=== PATIENT | male | born 1945 | race Caucasian/White ===

== ENCOUNTER 2016-06-22 15:57 | Inpatient (IN) | payer OTHER ==
[~2016-06-22] VITALS: Ht 162.6 cm; Wt 96.7 kg
[~2016-06-22 15:57] MED LIST: ALLOPURINOL100 MG PO; APRESOLINE25 MG PO; CALCITRIOL0.25 MCG PO; CARVEDILOL6.25 MG PO; CENTRAVITES 501 EACH PO; Cipro PO; DOXYCYCLINE HY100 M3 PO; ELIQUIS5 MG PO; FEOSOL325 MG PO; FERROCITE324 MG PO; FLOMAX0.4 MG PO; FOLIC ACID1 MG PO; FOLVITE1 MG PO; FUROSEMIDE40 MG PO; Flomax PO; LOTREL 5/201 CAPSULE PO; Lopressor PO; METOPROLOL TART50 MG PO; MYCOSTATIN15 GM TP; NOVOLOG PE100 UNITS/ SC; Norvasc PO; Rocaltrol PO; SIMVASTATIN40 MG PO; THERAGRAN1 TABLET PO; ZOCOR40 MG PO; Zocor PO
[2016-06-22 17:28] LABS: EOSINOPHIL (%) 0 % (0-5); HEMATOCRIT 27.1 % (38.0-50.0); IMMATURE GRANULOCYTE (%) 0.8 % (0.0-0.7); IMMATURE GRANULOCYTE COUNT 0.1 K/uL; INSTRUMENT ABS NEUTROPHIL CT 13.1 K/uL; LYMPHOCYTE COUNT 0.4 K/uL (1.0-2.8); MCH 32.4 PG (29.0-34.0); MCHC 32.8 G/DL (30.0-36.0); MCV 98.5 FL (86-99); MEAN PLAT.VOLUME 10.7 uM^3 (9.0-12.4); MONOCYTE (%) 5.7 % (3-12); MONOCYTE COUNT 0.8 K/uL (0-0.8); NEUTROPHIL (%) 90.9 % (45-76); NEUTROPHIL COUNT 13.1 K/uL (1.8-6.4); PLATELET COUNT 140 K/uL (156-360); RBC DIS.WIDTH-CV 17.6 % (11.8-14.6); RBC DIS.WIDTH-SD 62.4 % (39-53); RED BLOOD COUNT 2.75 M/uL (4.00-5.50); WHITE BLOOD COUNT 14.5 K/uL (4.1-10.2)
[2016-06-22 17:35] LABS: CHLORIDE 108 mEq/L (99-109); SODIUM 141 mEq/L (136-147)
[2016-06-22 17:38] LABS: GLUCOSE 104 mg/dL (70-99)
[2016-06-22 17:39] LABS: ANION GAP 14 MEQ/L (2-14); TOTAL BILIRUBIN 0.8 mg/dL (0.0-1.0)
[2016-06-22 17:41] LABS: ALKALINE PHOSPHATASE 74 IU/L (3-129); GFR ESTIMATE (CALCULATED) 20 mL/min/
[2016-06-22 17:42] LABS: UREA NITROGEN (BUN) 64 mg/dL (9-23)
[2016-06-22 17:47] LABS: TROP-I INTERPRETATION INDETERMINATE; TROPONIN-I 0.35 ng/mL (0.0-0.30)
[2016-06-22 19:36] LABS: ADD MIUA? YES; BILIRUBIN NEGATIVE; BLOOD SMALL; COLOR YELLOW ((YELLOW)); GLUCOSE (STRIP) NEGATIVE; KETONES NEGATIVE; LEUKOCYTES LARGE; NITRITE NEGATIVE; PROTEIN (STRIP) 30; UROBILINOGEN 0.2 MG/DL (0.2-1.0)
[2016-06-22 19:57] LABS: BACTERIA RARE /HPF; EPITHELIAL CELLS 3+ /HPF; MUCUS TRACE /LPF; RED BLOOD CELLS 0-5 /HPF (0-5); UCUL ADDED? NO; WHITE BLOOD CELLS 40-50 /HPF (0-5)
[2016-06-22] MEDS ORDERED: DAILY VALUE1 EACH PO (20:24)
[2016-06-22] MEDS ORDERED: LASIX40 MG PO (20:25)
[2016-06-22] MEDS ORDERED: CHILD ASPIRIN81 M1 PO (20:25)
[2016-06-22] MEDS ORDERED: APRESOLINE25 MG PO (20:26)
[2016-06-22] MEDS ORDERED: COREG6.25 M1 PO (20:27)
[2016-06-22 23:22] LABS: TROP-I INTERPRETATION INDETERMINATE; TROPONIN-I 0.37 ng/mL (0.0-0.30)
[2016-06-22 23:51] VITALS: BP 110/73
[2016-06-23 03:24] VITALS: BP 97/63
[2016-06-23 06:43] LABS: ANION GAP 10 MEQ/L (2-14); CHLORIDE 106 MEQ/L (99-109); GFR ESTIMATE (CALCULATED) 20 mL/min/; GLUCOSE 112 mg/dL (70-99); POTASSIUM 4.6 MEQ/L (3.7-5.4); SAMPLE HEMOLYSIS CHECK 0; SAMPLE ICTERIC CHECK 0; SAMPLE LIPEMIA CHECK 0; SODIUM 139 MEQ/L (136-147); UREA NITROGEN (BUN) 60 mg/dL (9-23)
[2016-06-23 06:45] LABS: TROP-I INTERPRETATION INDETERMINATE
[2016-06-23 06:55] VITALS: BP 111/68
[2016-06-23 07:05] LABS: MCH 32.3 PG (29.0-34.0); MCV 100.8 FL (86-99); MEAN PLAT.VOLUME 12.2 uM^3 (9.0-12.4); PLATELET COUNT 128 K/uL (156-360); RBC DIS.WIDTH-CV 17.4 % (11.8-14.6); RBC DIS.WIDTH-SD 61.7 % (39-53); RED BLOOD COUNT 2.48 M/uL (4.00-5.50)
[2016-06-23 11:11] VITALS: BP 106/54
[2016-06-23 15:15] VITALS: BP 86/52
[2016-06-23 19:32] VITALS: BP 92/60
[2016-06-23 23:43] VITALS: BP 101/56
[2016-06-24] VITALS (9 sets, daily range): BP systolic 97–141; BP diastolic 65–87
[2016-06-24 07:50] LABS: EOSINOPHIL (%) 2.8 % (0-5); EOSINOPHIL COUNT 0.2 K/uL (0-0.3); IMMATURE GRANULOCYTE (%) 0.4 % (0.0-0.7); INSTRUMENT ABS NEUTROPHIL CT 5.3 K/uL; LYMPHOCYTE COUNT 0.4 K/uL (1.0-2.8); MCHC 32.2 G/DL (30.0-36.0); MCV 99.3 FL (86-99); MEAN PLAT.VOLUME 12.1 uM^3 (9.0-12.4); MONOCYTE (%) 10.8 % (3-12); MONOCYTE COUNT 0.7 K/uL (0-0.8); NEUTROPHIL (%) 79.8 % (45-76); NEUTROPHIL COUNT 5.3 K/uL (1.8-6.4); NRBC (%) 0.3 /100 WBC (0-0); PLATELET COUNT 144 K/uL (156-360); RBC DIS.WIDTH-CV 17.2 % (11.8-14.6); RED BLOOD COUNT 2.72 M/uL (4.00-5.50)
[2016-06-24 07:52] LABS: WHITE BLOOD COUNT 6.7 K/uL (4.1-10.2)
[2016-06-24 09:01] LABS: FERRITIN 343 NG/ML (22-322)
[2016-06-24 09:15] LABS: INTER. NORMALIZED RATIO 1.3; PROTHROMBIN TIME 13.4 (9.2-11.2); PTT 34.8 (25-32)
[2016-06-24 10:31] LABS: ANION GAP 11 MEQ/L (2-14); CHLORIDE 103 MEQ/L (99-109); DIRECT BILIRUBIN 0.2 mg/dL (0.0-0.3); POTASSIUM 4.1 MEQ/L (3.7-5.4); SAMPLE HEMOLYSIS CHECK 0; SAMPLE ICTERIC CHECK 0; SAMPLE LIPEMIA CHECK 0; SODIUM 137 MEQ/L (136-147); TOTAL BILIRUBIN 0.4 MG/DL (0.0-1.0)
[2016-06-24 10:36] LABS: ALKALINE PHOSPHATASE 61 IU/L (3-129); GFR ESTIMATE (CALCULATED) 20 mL/min/; GLUCOSE 154 mg/dL (70-99); LACTATE DEHYDROGENASE 207 IU/L (20-246); UREA NITROGEN (BUN) 68 mg/dL (9-23)
[2016-06-24 17:19] LABS: TYPE OF FLUID PLEURAL
[2016-06-24 17:56] LABS: BODY FLUID RBC'S 3000 /MM^3 (0-100); BODY FLUID WBC'S 322 /MM^3 (0-500)
[2016-06-24 18:02] LABS: MONONUCLEAR WBC'S 92 %; POLYNUCLEAR WBC'S 8 % (0-25)
[2016-06-24 18:19] LABS: BODY FLUID LDH 74 IU/L; BODY FLUID PROTEIN < 3.0 G/DL
[2016-06-25 03:15] VITALS: BP 100/55
[2016-06-25 07:40] LABS: ANION GAP 12 MEQ/L (2-14); CHLORIDE 99 MEQ/L (99-109); GFR ESTIMATE (CALCULATED) 20 mL/min/; GLUCOSE 166 mg/dL (70-99); POTASSIUM 4.1 MEQ/L (3.7-5.4); SAMPLE HEMOLYSIS CHECK 0; SAMPLE ICTERIC CHECK 0; SAMPLE LIPEMIA CHECK 0; SODIUM 134 MEQ/L (136-147); UREA NITROGEN (BUN) 70 mg/dL (9-23)
[2016-06-25 08:31] VITALS: BP 113/67
[2016-06-25 12:00] VITALS: BP 120/62
[2016-06-25 16:00] VITALS: BP 112/71
[2016-06-25 19:30] VITALS: BP 94/58
[2016-06-25 23:04] VITALS: BP 100/59
[2016-06-26] VITALS (14 sets, daily range): BP systolic 75–128; BP diastolic 6–81
[2016-06-26 06:40] LABS: EOSINOPHIL (%) 0.3 % (0-5); HEMATOCRIT 30.1 % (38.0-50.0); IMMATURE GRANULOCYTE (%) 1.1 % (0.0-0.7); IMMATURE GRANULOCYTE COUNT 0.1 K/uL; INSTRUMENT ABS NEUTROPHIL CT 5.9 K/uL; LYMPHOCYTE COUNT 0.5 K/uL (1.0-2.8); MCH 31.9 PG (29.0-34.0); MCHC 31.6 G/DL (30.0-36.0); MEAN PLAT.VOLUME 12.5 uM^3 (9.0-12.4); MONOCYTE (%) 11.1 % (3-12); MONOCYTE COUNT 0.8 K/uL (0-0.8); NEUTROPHIL (%) 79.9 % (45-76); NEUTROPHIL COUNT 5.9 K/uL (1.8-6.4); NRBC (%) 0.8 /100 WBC (0-0); PLATELET COUNT 169 K/uL (156-360); RBC DIS.WIDTH-CV 16.7 % (11.8-14.6); RBC DIS.WIDTH-SD 61.7 % (39-53); RED BLOOD COUNT 2.98 M/uL (4.00-5.50); WHITE BLOOD COUNT 7.3 K/uL (4.1-10.2)
[2016-06-26 07:07] LABS: ALKALINE PHOSPHATASE 69 IU/L (3-129); ANION GAP 11 MEQ/L (2-14); CHLORIDE 100 MEQ/L (99-109); GFR ESTIMATE (CALCULATED) 18 mL/min/; GLUCOSE 166 mg/dL (70-99); SAMPLE HEMOLYSIS CHECK 1; SAMPLE ICTERIC CHECK 0; SAMPLE LIPEMIA CHECK 0; SODIUM 135 MEQ/L (136-147); UREA NITROGEN (BUN) 74 mg/dL (9-23)
[2016-06-26 07:09] LABS: POTASSIUM 4.7 MEQ/L (3.7-5.4); TOTAL BILIRUBIN 0.5 MG/DL (0.0-1.0)
[2016-06-26 10:50] LABS: POINT-OF-CARE METER ID UU13113725
[2016-06-26 10:52] LABS: BASE EXCESS -7.2 mEq/L (-3 to +3); BICARBONATE 21.3 mEq/L (22-26); COMMENTS - BLOOD GASES A+C+; DEVICE NC; METHEMOGLOBIN 1.4 % (0-1.5); O2 FLOW 4 L/MIN; PCO2 57 mm Hg (35-45); PO2 46 mm Hg (80-100); SITE RR
[2016-06-26 10:53] LABS: pH 7.18 (7.35-7.45)
[2016-06-26 13:15] LABS: METH RESISTANT S AUREUS PCR NEGATIVE (NEGATIVE)
[2016-06-26 13:24] LABS: PROBE CHECK PASS; SPECIMEN PROCESSING CONTROL PASS
[2016-06-27 03:32] VITALS: BP 88/69
[2016-06-27 06:28] LABS: EOSINOPHIL (%) 0.7 % (0-5); EOSINOPHIL COUNT 0.1 K/uL (0-0.3); HEMATOCRIT 30.2 % (38.0-50.0); IMMATURE GRANULOCYTE (%) 1.3 % (0.0-0.7); IMMATURE GRANULOCYTE COUNT 0.1 K/uL; INSTRUMENT ABS NEUTROPHIL CT 5.6 K/uL; LYMPHOCYTE COUNT 0.5 K/uL (1.0-2.8); MCH 32.1 PG (29.0-34.0); MCHC 31.8 G/DL (30.0-36.0); MEAN PLAT.VOLUME 12.2 uM^3 (9.0-12.4); MONOCYTE (%) 12.7 % (3-12); MONOCYTE COUNT 0.9 K/uL (0-0.8); NEUTROPHIL COUNT 5.6 K/uL (1.8-6.4); NRBC (%) 1.4 /100 WBC (0-0); PLATELET COUNT 156 K/uL (156-360); RBC DIS.WIDTH-CV 16.7 % (11.8-14.6); RBC DIS.WIDTH-SD 60.3 % (39-53); RED BLOOD COUNT 2.99 M/uL (4.00-5.50); WHITE BLOOD COUNT 7.2 K/uL (4.1-10.2)
[2016-06-27 07:07] LABS: ALKALINE PHOSPHATASE 69 IU/L (3-129); ANION GAP 13 MEQ/L (2-14); CHLORIDE 100 MEQ/L (99-109); GFR ESTIMATE (CALCULATED) 15 mL/min/; GLUCOSE 176 mg/dL (70-99); POTASSIUM 5.2 MEQ/L (3.7-5.4); SAMPLE HEMOLYSIS CHECK 0; SAMPLE ICTERIC CHECK 0; SAMPLE LIPEMIA CHECK 0; SODIUM 134 MEQ/L (136-147); TOTAL BILIRUBIN 0.5 MG/DL (0.0-1.0); UREA NITROGEN (BUN) 83 mg/dL (9-23)
[2016-06-27 08:26] VITALS: BP 131/82
== END 2016-06-27 16:10 | DRG 291 ==
LOC: EME 15:57 → 5EAST 19:50 → 4WEST 19:50 → EDOF 19:50 → 5EAST 23:16 → 4WEST 06-26 11:38 → 5EAST 06-26 17:49
PROVIDERS: Emergency Medicine; Hospitalist; Internal Medicine; Internal Medicine Nephrology; Internal Medicine Pulmonary Disease; Radiology Diagnostic Radiology
PROC: 0W993ZX Drainage of Right Pleural Cavity, Percutaneous Approach, Diagnostic (ICD-10-PCS; principal; 2016-06-24)
DX: I50.23 Acute on chronic systolic (congestive) heart failure (principal); J96.01 Acute respiratory failure with hypoxia; D69.6 Thrombocytopenia, unspecified; N18.4 Chronic kidney disease, stage 4 (severe); I31.3 Pericardial effusion (noninflammatory); E11.22 Type 2 diabetes mellitus with diabetic chronic kidney disease; N39.0 Urinary tract infection, site not specified; I48.0 Paroxysmal atrial fibrillation; I42.0 Dilated cardiomyopathy; I12.9 Hypertensive chronic kidney disease with stage 1 through stage 4 chronic kidney disease, or unspecified chronic kidney disease; Q90.9 Down syndrome, unspecified; K40.90 Unilateral inguinal hernia, without obstruction or gangrene, not specified as recurrent; E78.5 Hyperlipidemia, unspecified; E66.9 Obesity, unspecified; N40.0 Benign prostatic hyperplasia without lower urinary tract symptoms; N43.3 Hydrocele, unspecified; D64.9 Anemia, unspecified
CPT/HCPCS: 36600; 71010; 71020; 71250; 76770; 80048; 80048 91; 80053; 80069; 80076; 81003; 82607; 82728; 82746; 82803; 82945; 82948; 83605; 83615; 83615 91; 83880; 84100; 84157; 84466; 84484; 85025; 85027; 85610; 85730; 87040; 87070; 87075; 87077; 87086; 87147; 87186; 87205; 87641; 88108; 88305; 89051; 92610 GN; 93005; 93306; 94799; 99281; 99285; J0696; J0881; J1940; J2270; J7040; J7050